=== PATIENT | female | born 1960 | race Caucasian/White ===

== ENCOUNTER 2022-10-07 11:31 | Day surgery (SDC) | payer BC, SELFPAY ==
[2022-10-07 11:58] VITALS: BMI 27.0
[2022-10-07 12:01] VITALS: BP 139/87; PULSE 66; RESP 18; TEMP 36.6; O2SAT 98
--- NOTE | 2022-10-07 12:57 | HO.ANESPROP2 ---
[facility] Past Medical History Medical History delivery delivered History of stent insertion of renal artery Family History Family history of problems with anesthesia: No Surgical History Surgical History History of lumpectomy of right breast S/P gastric surgery History of Problems with Anesthesia: No Social History Social History Patient Tobacco Use Status: Never used Tobacco Use of substances other than those prescribed or required for medical reasons: No Are you DNR?: No Advance Directives: No Advance Directives Information Provided: Yes Meds Allergies Allergy/AdvReac Type Severity Reaction Status Date / Time morphine Allergy Anaphylaxis Verified 10/07/22 11:42 Active Medications: Current Medications Lactated Ringer's (Lr) 1,000 mls @ 50 mls/hr IVCONT .Q20H KARIS Last Admin: 10/07/22 12:12 Dose: 50 mls/hr Ondansetron HCl (Ondansetron Hcl 4 Mg/2 Ml Vial) 4 mg IVPUSH ONCE PRN PRN Reason: Nausea and Vomiting Home Medications Medication Instructions Recorded Confirmed Last Taken Type amlodipine 5 mg tablet 5 mg PO DAILY 10/07/22 10/07/22 Unknown History anastrozole 1 mg tablet 1 mg PO DAILY 10/07/22 10/07/22 Unknown History lisinopril 10 mg tablet 10 mg PO DAILY 10/07/22 10/07/22 Unknown History Exam Exam Date and Time: October 07, 2022 1257 Height,Weight and Vital Signs: Height 5 ft 5 in Weight 73.482 kg Last Vital Signs Temp 97.9 F 10/07/22 12:01 Pulse 66 10/07/22 12:01 Resp 18 10/07/22 12:01 BP 139/87 10/07/22 12:01 Pulse Ox 98 10/07/22 12:01 O2 Del Method Room Air 10/07/22 12:01 Airway Mallampati Class: II TM Dist: >3cm Neck ROM: Full Loose/Missing/Broken Teeth: No Heart: rrr Lungs: cleear Assessment and Plan Final Anesthetic Review Family History of Problems with Anesthesia: No History of Problems with Anesthesia: No NPO: Yes ASA Class: II Final Preanesthetic Review: No Changes in Pt Med Stat, Meds/Allgs Chart Reviewed, Consent Obtained/Reviewed and Anes Risks/Benef Reviewed Patient Risk: Intermediate Procedure Risk: Low Anesthetic Plan Anesthetic Plan: MAC: Disposition: Standard PACU
[2022-10-07 13:37] VITALS: BP 111/71; PULSE 70; RESP 16; TEMP 36.1; O2SAT 96
--- NOTE | 2022-10-07 13:46 | PM.OP ---
Brief Operative Note Date of Service: 10/07/22 Pre-op diagnosis: Dysphagia Post-op diagnosis: other (GERD, Hiatal hernia) Procedure: EGD with biopsies Surgeon: Erik Angulo Anesthesia: MAC Was an Manager Insurance used for this Procedure?: No Estimated blood loss (mL): 2.0 Pathology: other (A. EG Junction at 35cm B. Esophagus 20-25cm) Condition: stable Disposition: PACU
[2022-10-07 13:52] VITALS: BP 116/74; PULSE 60; RESP 16; O2SAT 97
[2022-10-07 14:07] VITALS: BP 131/73; PULSE 63; RESP 16; TEMP 37.1; O2SAT 98
--- NOTE | 2022-10-07 14:10 | OP_ITS ---
DATE OF SERVICE: 10/07/2022 SURGEON: Erik Angulo MD INDICATIONS: The patient presents for evaluation of intermittent dysphagia, abnormal barium swallow, and odynophagia. Full consent has been obtained from her for this, including risks of bleeding and perforation. PREOPERATIVE DIAGNOSIS: POSTOPERATIVE DIAGNOSIS: PROCEDURE PERFORMED: Esophagogastroduodenoscopy with biopsies. ESTIMATED BLOOD LOSS: COMPLICATIONS: ANESTHESIA: Monitored anesthesia care. ASSISTANTS: SPECIMENS: PREOPERATIVE DIAGNOSES: Dysphagia, odynophagia, and abnormal barium swallow. POSTOPERATIVE DIAGNOSES: Dysphagia, odynophagia, and abnormal barium swallow, hiatal hernia, gastroesophageal reflux, rule out eosinophilic esophagitis. DESCRIPTION OF PROCEDURE: The patient was placed in the left lateral decubitus position. The Olympus video gastroscope was passed in the posterior oropharynx and upper esophagus under direct vision. The scope was passed slowly to the distal esophagus. The gastroesophageal junction appeared at 35 cm. This area was notable for some slight irregularity, and an approximately 5 mm area of some slight edema and friability. The scope easily entered the stomach. The scope was advanced to the pylorus, and the duodenum was cannulated to the descending portion. The 2nd and 3rd portions of duodenum appeared normal. The duodenal bulb did have some deformity and outpouching consistent with her previous history of a duodenal ulcer with possible perforation. There was no active ulceration noted. The scope was withdrawn back to the stomach. The gastric antrum and body appeared normal with good peristalsis. The scope was retroflexed visualizing the proximal stomach carefully, which appeared normal, without any sign of mass or ulceration. The scope was withdrawn back into the esophagus. Multiple biopsies were obtained at the EG junction at 35 cm, including the area of some slight edema and friability. Again, there was no stricture. The scope was then slowly withdrawn through the remainder of the esophagus, which appeared normal, without any sign of other abnormalities nor areas of stricture or web. Biopsies were obtained between 20 and 25 cm to rule out eosinophilic esophagitis. The upper esophageal sphincter and very proximal esophagus appeared normal. I did try to visualize the pharynx as well as possible but did not get a great look at that. The scope was withdrawn from the patient. She tolerated the procedure well and was returned to the recovery area in stable condition. IMPRESSION: 1. Hiatal hernia, gastroesophageal reflux. 2. Rule out eosinophilic esophagitis. PLAN: The results of the biopsies will be checked. In regard to her symptoms, I shall put her on a trial of some acid suppression with a PPI daily for 1 or 2 months to see if that makes a difference for her. She will be seen in followup in the office. She was advised not to use any aspirin or NSAIDs for at least a week. MD BROCK Bowling/SUN / [id number] MTDD
== END 2022-10-07 14:21 | disposition home or self-care (01) ==
PROVIDERS: PCP Internal Medicine; Visit Provider Internal Medicine
PROC: (CPT 43239; principal; 2022-10-07 12:50)
DX: R13.14 Dysphagia, pharyngoesophageal phase (principal); K21.9 Gastro-esophageal reflux disease without esophagitis; K44.9 Diaphragmatic hernia without obstruction or gangrene; Z87.11 Personal history of peptic ulcer disease; Z79.899 Other long term (current) drug therapy; Z88.8 Allergy status to other drugs, medicaments and biological substances; Z98.890 Other specified postprocedural states
CPT/HCPCS: 43239; 88305